=== PATIENT | female | born 1930 | race Caucasian/White ===

== ENCOUNTER 2016-06-24 11:37 | Emergency (ER) | payer MEDICARE ==
[2016-06-24 12:48] LABS: BILIRUBIN NEGATIVE (NEGATIVE); BLOOD 2+ Ery/uL (NEGATIVE); CLARITY CLEAR (CLEAR); COLOR YELLOW (YELLOW); GLUCOSE (U) NORMAL (NORMAL); KETONE (U) NEGATIVE (NEGATIVE); LEUKOCYTES 2+ Leu/uL (NEGATIVE); NITRITE NEGATIVE (NEGATIVE); PROTEIN 1+ mg/dL (NEGATIVE); SPECIFIC GRAVITY 1.015 (1.001-1.030); UROBILINOGEN 0.2 mg/dL (0.2-1.0)
[2016-06-24 13:05] LABS: BACTERIA 1+; CALCIUM OXALATE CRYSTALS MODERATE; URINARY WBC 20-50
[2016-06-24 14:44] LABS: BASOPHIL 0.4 % (0-2); EOSINOPHIL 2.7 % (0-7); HCT 36.4 % (37.0-47.0); HGB 12.1 g/dl (12.5-16.0); LYMPHOCYTE 15.7 % (15-48); MCH 33.8 pg (25.0-31.0); MCHC 33.2 g/dL (32.0-36.0); MCV 101.7 fL (78.0-100.0); MONOCYTE 8.6 % (0-12); MPV 9.4 fL (6.0-9.5); NEUTROPHIL 72.6 % (41-80); PLT 237 K/uL (150-400); RBC 3.58 M/uL (4.20-5.40); RDW 13.4 % (11.5-14.0); WBC 7.5 K/uL (4.0-10.5)
[2016-06-24 15:03] LABS: CREATININE 0.9 mg/dL (0.5-1.0); POTASSIUM 4.7 mmol/L (3.5-5.1)
== END 2016-06-24 16:40 | disposition home or self-care (01) ==
LOC: FER 11:37
PROVIDERS: Emergency Medicine; Nurse Practitioner
DX: R82.90 Unspecified abnormal findings in urine (principal); I10 Essential (primary) hypertension; F03.90 Unspecified dementia, unspecified severity, without behavioral disturbance, psychotic disturbance, mood disturbance, and anxiety; Z87.440 Personal history of urinary (tract) infections; Z88.1 Allergy status to other antibiotic agents; Z79.82 Long term (current) use of aspirin; Z79.899 Other long term (current) drug therapy
CPT/HCPCS: 36415; 80048; 81001; 85025